=== PATIENT | female | born 1955 | race Caucasian/White ===

== ENCOUNTER 2021-04-26 16:33 | Emergency (ER) | payer OTHER | END 2021-04-26 18:36 | disposition home or self-care (01) | LOC: ER1 16:33 | DX: S16.1XXA Strain of muscle, fascia and tendon at neck level, initial encounter (principal); V49.9XXA Car occupant (driver) (passenger) injured in unspecified traffic accident, initial encounter | CPT/HCPCS: 70450; 72125; 99284 ==